=== PATIENT | male | born 1980 | race Caucasian/White ===

== ENCOUNTER 2023-06-04 13:51 | Observation (INO) | payer BC ==
[2023-06-04] MEDS ORDERED: ACETAMINOPHEN 1000 MG/100 ML BAG IVPB ONE (15:04)
[2023-06-04] MEDS ORDERED: SODIUM CHLORIDE 0.9% 500 ML INFUS.BAG IV ONE ×2 (15:04→17:13)
[2023-06-04] MEDS ORDERED: ACETAMINOPHEN INJECTION 100 ML IVPB ONE (15:22)
[2023-06-04] MEDS ORDERED: METOCLOPRAMIDE HCL INJECTION 10 MG/2 ML VIAL IVPUSH ONE (15:31)
[2023-06-04] MEDS ORDERED: METOCLOPRAMIDE HCL INJECTION 10 MG/2 ML VIAL ONE (15:41)
[2023-06-04 16:22] LABS: VENOUS BASE EXCESS 1.4 mmol/L (-2-2); VENOUS O2 SATURATION 33.7 % (70-80); VENOUS PCO2 51.4 mmHg (38-52); VENOUS PH 7.361 (7.310-7.410)
[2023-06-04 16:30] LABS: BASO % 0.2 % (0-2.0); EOS % 0.1 % (0-4.5); HEMATOCRIT 46.3 % (35.4-49); HEMOGLOBIN 15.7 GM/dL (11.7-16.9); LYMPH % 6.7 % (8-40); MCH 31.8 pg (25.7-33.7); MCHC 33.9 g/dl (32.0-35.9); MEAN CELL VOLUME 93.9 fl (80-96); MEAN PLT VOLUME 8.4 fl (7.5-11.1); MONO % 4.7 % (3.8-10.2); NEUT % 88.3 % (42.8-82.8); PLATELET COUNT 274 10^3/uL (134-434); RBC 4.93 M/mm3 (4.00-5.60); RDW 13.6 % (11.9-15.9); WHITE BLOOD COUNT 12.1 K/mm3 (4.0-10.0)
[2023-06-04 16:49] LABS: URINE APPEARANCE CLEAR; URINE BILIRUBIN NEGATIVE (NEGATIVE); URINE COLOR YELLOW; URINE GLUCOSE (UA) NEGATIVE (NEGATIVE); URINE KETONE NEGATIVE (NEGATIVE); URINE LEUK ESTERASE NEGATIVE (NEGATIVE); URINE NITRITE NEGATIVE (NEGATIVE); URINE PROTEIN NEGATIVE (NEGATIVE); URINE UROBILINOGEN 0.2 mg/dL (0.2-1.0)
[2023-06-04 16:52] LABS: POTASSIUM 3.8 mmol/L (3.5-5.1)
[2023-06-04 16:55] LABS: BLOOD UREA NITROGEN 10.8 mg/dL (7-18); CALCIUM 10.1 mg/dL (8.5-10.1)
[2023-06-04 16:56] LABS: ALBUMIN 4.5 g/dl (3.4-5.0)
[2023-06-04 16:58] LABS: CREATININE 1.2 mg/dL (0.55-1.3)
[2023-06-04 17:00] LABS: BILIRUBIN,TOTAL 0.7 mg/dL (0.2-1); TOT PROT 8.8 g/dl (6.4-8.2)
[2023-06-04 17:09] LABS: LACTIC ACID 3.1 mmol/L (0.4-2.0)
[2023-06-04] MEDS ORDERED: AMPICILLIN NA/SULBACTAM NA 3 GM VIAL ONE (19:35)
[2023-06-04] MEDS: AMPICILLIN NA/SULBACTAM NA 3 GM in SODIUM CHLORIDE 100 ML IVPB SCH ×2 (19:41→20:29)
[2023-06-04 19:52] VITALS: RESP 18
[2023-06-04 21:51] LABS: LACTIC ACID 3.6 mmol/L (0.4-2.0)
[2023-06-04] MEDS ORDERED: SODIUM CHLORIDE 1,000 ML IV STA (22:21)
[2023-06-05] MEDS ORDERED: SODIUM CHLORIDE 1,000 ML IV STA (01:44)
[2023-06-05] MEDS ORDERED: ACETAMINOPHEN 325 MG TABLET (FP) PO PRN ×2 (02:24→07:19)
[2023-06-05] MEDS: AMPICILLIN NA/SULBACTAM NA 3 GM in SODIUM CHLORIDE 100 ML IVPB SCH (02:55)
[2023-06-05 04:57] VITALS: BMI 24.6
[2023-06-05] MEDS ORDERED: AMPICILLIN NA/SULBACTAM NA 3 GM in SODIUM CHLORIDE 100 ML IVPB SCH (09:00)
[2023-06-05 09:16] VITALS: BP 123/79; PULSE 100; TEMP 98.3
[2023-06-05 09:27] LABS: HEMATOCRIT 40.2 % (35.4-49); HEMOGLOBIN 13.6 GM/dL (11.7-16.9); MCH 31.8 pg (25.7-33.7); MCHC 33.9 g/dl (32.0-35.9); MEAN CELL VOLUME 93.8 fl (80-96); MEAN PLT VOLUME 8.3 fl (7.5-11.1); PLATELET COUNT 232 10^3/uL (134-434); RBC 4.28 M/mm3 (4.00-5.60); RDW 13.5 % (11.9-15.9)
[2023-06-05 09:42] LABS: POTASSIUM 3.6 mmol/L (3.5-5.1)
[2023-06-05 09:53] LABS: CALCIUM 8.8 mg/dL (8.5-10.1)
[2023-06-05 09:54] LABS: BLOOD UREA NITROGEN 12.3 mg/dL (7-18)
[2023-06-05] MEDS ORDERED: ENOXAPARIN NA (PORCINE) 40 MG/0.4 ML DISP.SYRIN SQ SCH (10:00)
[2023-06-05 10:02] LABS: BILIRUBIN,TOTAL 0.4 mg/dL (0.2-1)
[2023-06-05 10:07] LABS: ALBUMIN 3.1 g/dl (3.4-5.0); TOT PROT 6.6 g/dl (6.4-8.2)
== END 2023-06-05 12:54 | disposition home or self-care (01) ==
LOC: JER 13:51 → JERBED 18:52 → UNDOADMOB 18:52 → J5S 20:07 → JERBED 20:07 → OBSVTOIN 21:44 → INTOOBSV 21:44 → JERBED 06-05 09:33 → J5S 06-05 09:33
PROVIDERS: ADMIT Internal Medicine; ATTEND Internal Medicine
PROC: 3E03329 Introduction of Other Anti-infective into Peripheral Vein, Percutaneous Approach (ICD-10-PCS; principal; 2023-06-05)
PROC: 3E033NZ Introduction of Analgesics, Hypnotics, Sedatives into Peripheral Vein, Percutaneous Approach (ICD-10-PCS; 2023-06-05)
PROC: 3E033GC Introduction of Other Therapeutic Substance into Peripheral Vein, Percutaneous Approach (ICD-10-PCS; 2023-06-05)
PROC: 3E023GC Introduction of Other Therapeutic Substance into Muscle, Percutaneous Approach (ICD-10-PCS; 2023-06-05)
DX: A41.9 Sepsis, unspecified organism (principal); J32.9 Chronic sinusitis, unspecified; R09.81 Nasal congestion; I10 Essential (primary) hypertension; E78.5 Hyperlipidemia, unspecified; Z29.8 Encounter for other specified prophylactic measures
CPT/HCPCS: 0241U-QW; 36415; 70450-TC; 71045-TC-FY; 80053; 81003; 82803; 83036; 83605; 84484; 85025; 85027; 86140; 87040; 87086; 93005; 93010; 96361; 96365; 96366; 96372; 96375; 99285-25; G0378